=== PATIENT | male | born 1960 | race Caucasian/White ===

== ENCOUNTER 2017-11-14 06:29 | Day surgery (SDC) | payer BC ==
[2017-11-14] VITALS (8 sets, daily range): BP systolic 103–138; BP diastolic 55–84
[~2017-11-14] VITALS: Ht 177.8 cm; Wt 69.0 kg
[2017-11-14] MEDS ORDERED: cefazolin/dext.iso 2gm/50ml 50 ML IV ONE ×2 (06:45→08:30)
[2017-11-14] MEDS ORDERED: normal saline 1000ml 1,000 ML IV PRN (06:45)
[2017-11-14 07:15] LABS: BASOPHILS % (AUTO) 0.4 % (0-1); EOSINOPHILS # (AUTO) 0.1 X10'3 (0-0.9); EOSINOPHILS % (AUTO) 2.5 % (0-6); HEMOGLOBIN 16.1 g/dl (14.0-17.9); LYMPHOCYTES # (AUTO) 1.8 X10'3 (1.1-4.8); LYMPHOCYTES % (AUTO) 47.9 % (21-51); MEAN CORPUSCULAR HEMOGLOBIN 30.3 PG (27.0-31.0); MEAN CORPUSCULAR VOLUME 86.6 FL (78-98); MEAN PLATELET VOLUME 9.2 FL (7.4-10.4); MONOCYTES # (AUTO) 0.3 X10'3 (0-0.9); MONOCYTES % (AUTO) 8.4 % (2-12); NEUTROPHILS # (AUTO) 1.5 X10'3 (1.8-7.7); NEUTROPHILS % (AUTO) 40.8 % (42-75); PLATELET COUNT 144 X10'3 (140-440); RED BLOOD COUNT 5.31 X10'6 (4.70-6.10); RED CELL DISTRIBUTION WIDTH 12.6 % (11.5-14.5); WHITE BLOOD COUNT 3.7 X10'3 (4.5-11.0)
[2017-11-14 07:26] LABS: ALBUMIN 3.9 G/DL (3.4-5.0); ANION GAP 10 (8-16); BLOOD UREA NITROGEN 23 MG/DL (7-18); BUN/CREATININE RATIO 21.5 (5.4-32.0); CALCIUM 8.9 MG/DL (8.5-10.1); CHLORIDE 106 MMOL/L (99-107); CREATININE 1.07 MG/DL (0.60-1.10); GLUCOSE 96 MG/DL (70-104); POTASSIUM 3.6 MMOL/L (3.5-5.1); PROTHROMBIN TIME 10.4 SECONDS (9.0-12.0); SODIUM 142 MMOL/L (135-145); TOTAL CARBON DIOXIDE 26.3 MMOL/L (24-32); eGFR 71 ML/MIN
[2017-11-14] MEDS ORDERED: iohexol 300 MG/1 ML 50ml polymer ONE (08:19)
[2017-11-14] MEDS ORDERED: LIDOcaine 1%/PF 5ML 10 MG/ML VIAL ONE (08:19)
[2017-11-14] MEDS ORDERED: midazolam 2 mg/2 ml injection IV PRN (08:25)
[2017-11-14] MEDS ORDERED: fentaNYL/PF 50MCG/1 ML 2ML syringe IV PRN (08:25)
[2017-11-14] MEDS ORDERED: diphenhydrAMINE 50 mg/ml inj IV ONE (08:25)
[2017-11-14] MEDS ORDERED: LIDOcaine 1%/PF 5ML 10 MG/ML VIAL SQ ONE (08:25)
[2017-11-14] MEDS ORDERED: midazolam 2 mg/2 ml injection ONE (08:46)
[2017-11-14] MEDS ORDERED: fentaNYL/PF 50MCG/1 ML 2ML syringe ONE (08:46)
[2017-11-14] MEDS ORDERED: diphenhydrAMINE 50 mg/ml inj ONE (08:46)
[2017-11-14] MEDS ORDERED: ondansetron/PF 4mg/2ml inj ONE (08:48)
[2017-11-14] MEDS ORDERED: ondansetron/PF 4mg/2ml inj IV ONE (09:10)
[2017-11-14] MEDS ORDERED: normal saline 1000ml 1,000 ML IV SCH (09:56)
[2017-11-14] MEDS ORDERED: HYDROcodone/acetaminophen 5mg/325mg tablet PO PRN (10:00)
== END 2017-11-14 13:00 | disposition home or self-care (01) ==
LOC: SSTAY O 06:29 → EDBD 08:30 → SSTAY O 13:00
PROVIDERS: ATTEND Radiology Diagnostic Radiology
DX: M48.54XA Collapsed vertebra, not elsewhere classified, thoracic region, initial encounter for fracture (principal); Z98.890 Other specified postprocedural states
CPT/HCPCS: 22513; 36415; 80048; 85025; 85610; 99152; 99153; J0690; J1200; J2001; J2250; J2405; J3010; J7030; Q9967; A4620

== ENCOUNTER 2020-12-07 12:45 | Emergency (ER) | payer BC ==
[~2020-12-07] VITALS: Ht 177.8 cm; Wt 65.9 kg
[2020-12-07] MEDS ORDERED: CASIRIVIMAB/IMDEVIMAB inject. 10 ML in normal saline 100ml IV soln 100 ML IV ONE (13:35)
[2020-12-07] MEDS ORDERED: acetaminophen 325mg tablet PO ONE (13:35)
[2020-12-07 13:50] LABS: BASOPHILS % (AUTO) 0.3 % (0-1); EOSINOPHILS % (AUTO) 0 % (0-6); HEMATOCRIT 42.8 % (42.0-52.0); HEMOGLOBIN 14.8 g/dl (14.0-17.9); LYMPHOCYTES # (AUTO) 0.9 X10'3 (1.1-4.8); LYMPHOCYTES % (AUTO) 21.5 % (21-51); MEAN CORPUSCULAR HEMOGLOBIN 30.8 PG (27.0-31.0); MEAN CORPUSCULAR HGB CONC 34.5 g/dL (33.0-36.5); MEAN CORPUSCULAR VOLUME 89.2 FL (78-98); MEAN PLATELET VOLUME 8.8 FL (7.4-10.4); MONOCYTES # (AUTO) 0.2 X10'3 (0-0.9); MONOCYTES % (AUTO) 5.8 % (2-12); NEUTROPHILS # (AUTO) 2.9 X10'3 (1.8-7.7); NEUTROPHILS % (AUTO) 72.4 % (42-75); PLATELET COUNT 103 X10'3 (140-440); RED CELL DISTRIBUTION WIDTH 12.4 % (11.5-14.5); WHITE BLOOD COUNT 4.1 X10'3 (4.5-11.0)
[2020-12-07 14:05] LABS: ALANINE AMINOTRANSFERASE 94 U/L (12-78); ALBUMIN 2.9 G/DL (3.4-5.0); ALBUMIN/GLOBULIN RATIO 0.7 (1.1-1.5); ALKALINE PHOSPHATASE 57 IU/L (46-116); ANION GAP 7 (8-16); ASPARTATE AMINO TRANSFERASE 90 U/L (10-37); BILIRUBIN,TOTAL 0.4 MG/DL (0.1-1.0); BLOOD UREA NITROGEN 13 MG/DL (7-18); BUN/CREATININE RATIO 12.1 (5.4-32.0); CALCIUM 7.8 MG/DL (8.5-10.1); CHLORIDE 101 MMOL/L (99-107); CREATININE 1.07 MG/DL (0.60-1.10); GLUCOSE 109 MG/DL (70-104); POTASSIUM 4.3 MMOL/L (3.5-5.1); SODIUM 136 MMOL/L (135-145); TOTAL CARBON DIOXIDE 28.4 MMOL/L (24-32); TOTAL PROTEIN 6.8 G/DL (6.4-8.2); eGFR 70 ML/MIN
[2020-12-07] MEDS ORDERED: DEC4T PO (14:21)
[2020-12-07 15:51] VITALS: BP 90/55
== END 2020-12-07 15:53 | disposition home or self-care (01) ==
LOC: ER 12:45
DX: U07.1 COVID-19 (principal)
CPT/HCPCS: 36415; 71045; 80053; 85025; 99284; M0243; Q0244

== ENCOUNTER 2024-09-22 15:41 | Emergency (ER) | payer BC ==
[~2024-09-22] VITALS: Ht 177.8 cm; Wt 63.1 kg
[2024-09-22 15:55] VITALS: BP 131/72; PULSE 62; RESP 18; O2SAT 98
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
--- NOTE | 2024-09-22 17:58 | RADIOLOGY REPORT ---
Indication: HAND PAIN Technique: 3 views left hand Comparison: None FINDINGS/IMPRESSION: No radiographic evidence for acute fracture or dislocation. No significant soft tissue edema. No rad iopaque foreign body. There are fwro-ub-eomptsyc degenerative changes of the left wrist, 1st IP joint, d IP joints. This is most pronounced at the 2nd d IP joint.
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
[2024-09-22 18:44] VITALS: TEMP 97.6
== END 2024-09-22 18:45 | disposition home or self-care (01) ==
LOC: ER 15:42
DX: M54.2 Cervicalgia (principal); M54.50 Low back pain, unspecified; V89.2XXA Person injured in unspecified motor-vehicle accident, traffic, initial encounter; Y93.89 Activity, other specified; Y92.89 Other specified places as the place of occurrence of the external cause; Y99.8 Other external cause status
CPT/HCPCS: 72040; 72100; 73130; 99284